=== PATIENT | male | born 1965 ===

== ENCOUNTER 2021-08-13 14:27 | Outpatient (RCR) | payer OTHER | END 2021-08-20 | LOC: WSOH | DX: S39.012A Strain of muscle, fascia and tendon of lower back, initial encounter (principal); E78.00 Pure hypercholesterolemia, unspecified; E11.9 Type 2 diabetes mellitus without complications; I10 Essential (primary) hypertension; Y99.0 Civilian activity done for income or pay ==

== ENCOUNTER 2021-08-24 14:38 | Outpatient (RCR) | payer OTHER | END 2021-09-20 | disposition home or self-care (01) | LOC: WSOH | DX: S39.012D Strain of muscle, fascia and tendon of lower back, subsequent encounter (principal); E78.00 Pure hypercholesterolemia, unspecified; E11.9 Type 2 diabetes mellitus without complications; I10 Essential (primary) hypertension; Y99.0 Civilian activity done for income or pay ==